=== PATIENT | female | born 1960 | race American Indian/Alaskan Native ===

== ENCOUNTER 2019-10-18 10:11 | Day surgery (SDC) | payer MEDICARE ==
[~2019-10-18 10:11] MED LIST: SODIUM CHLORIDE 0.9% 1000 ML 1,000 ML IV SCH
[2019-10-18] MEDS ORDERED: LIDOCAINE MPF (2%) 20 MG/1 ML VIAL 5 ML ONE (11:00)
--- NOTE | 2019-10-18 11:06 | Anesthesia Consultation ---
Anesthesia Consult and Med Hx Date of service: 10/18/19 - Airway Anesthetic Teeth Evaluation: Partials ROM Head & Neck: Adequate Mental/Hyoid Distance: Adequate Mallampati Class: Class II Intubation Access Assessment: Good - Pulmonary Exam CTA: Yes - Cardiac Exam Cardiac Exam: RRR - Pre-Operative Health Status ASA Pre-Surgery Classification: ASA4 Proposed Anesthetic Plan: MAC - Pulmonary Hx Smoking: No - Cardiovascular System Hx Hypertension: Yes Hx Coronary Artery Disease: Yes Hx Angina: Yes - Endocrine Hx Hypothyroidism: Yes - Additional Comments Anesthesia Medical History Comments: CHF EF 55% , HTN , Angina, hypothyoidism , Morbid Obesity BMI 60+ for MAC. Cardiac clearance on chart
--- NOTE | 2019-10-18 11:07 | Anesthesia Day of Surgery ---
Anesthesia Day of Surgery - Day of Surgery Patient Examined: Yes Patient H&P Reviewed: Yes Patient is NPO: Yes
--- NOTE | 2019-10-18 12:05 | Procedure Note ---
Date of procedure: 10/18/19 Pre-op diagnosis: Epigastric Pain Post-op diagnosis: other (No Peptic Ulcer Disease noted/ Moderate, Hiatal Hernia/ Mild to Moderate Erosive Esophagitis/Gastric Erosion and Gastritis) Procedure: EGD with Biopsy Anesthesia: KRYSTYNA Surgeon: MOY BOLTON Estimated blood loss: minimal Pathology: list Specimen disposition: to lab Condition: stable Disposition: same day (Treat with PPI; advice about lifestyle changes because of the presence of a Hiatal Hernia. Avoid aspirin and NSAID for 4 days; otherwise resume home medication. Follow up in 1 to 2 weeks ([phone]).)
[2019-10-18] MEDS ORDERED: PROPOFOL 200 MG/20 ML VIAL IV ONE (12:16)
--- NOTE | 2019-10-18 12:36 | Operative Report ---
PROCEDURE: Esophagogastroduodenoscopy with biopsy. INDICATIONS: This is a 58-year-old obese -[place] female who has been having epigastric pain and discomfort. EGD was done to assess for any significant upper GI pathology. DESCRIPTION OF PROCEDURE: Procedure was done after getting informed consent with MAC anesthesia. Instrument was passed through the hypopharynx into the esophagus, which showed mild to moderate distal erosive esophagitis. Photo documentation and biopsy was done from the distal esophagus. The stomach on the retroverted view showed a moderately large hiatal hernia and gastric erosion and gastritis in the antrum. The pylorus was patent. The duodenum in the first and second portion appeared normal. There was no evidence of any gastric or duodenal ulcer present. Biopsy was done from the second part of the duodenum to rule out for possible celiac disease. Additional biopsy was done from the gastric antrum, gastric body and angular incisura to rule out for H. pylori and atrophic gastritis. There was minimal bleeding associated with the procedure. No complications associated with the procedure. ASSESSMENT: Epigastric pain. No peptic ulcer disease noted. Moderately large hiatal hernia, mild to moderate erosive esophagitis, gastritis, gastric erosion, rule out celiac disease. PLAN: To encourage the patient about lifestyle changes because of the hiatal hernia. Treat the patient with PPI, have the patient avoid aspirin and aspirin-related products for the next few days. The patient will also be advised about possible evaluation for bariatric surgery if okay with her primary care physician and have the patient follow up in the office in 1-2 weeks' time. The procedure was done in the GI lab with assistance of the GI lab team, which included KHANG, Lenore Esqueda and Dominique owen and with assistance of anesthesia. JOB# [id number] LIEN/PERRY
--- NOTE | 2019-10-18 13:25 | Post Anesthesia Evaluation ---
- Post Anesthesia Evaluation Patient Participated: Yes Airway Patent: Yes Stable Respiratory Function: Yes Nausea/Vomiting: No Temp > 96.8F: Yes Pain Manageable: Yes Adequeate Hydration: Yes Anesthesia Complications: No Block Receding Appropriately: Not Applicable Patient on Ventilator: No
[2019-10-18 13:41] VITALS: BP 123/67
== END 2019-10-18 13:14 | disposition home or self-care (01) ==
LOC: GIO 10:11
DX: R10.13 Epigastric pain (principal); K21.0 Gastro-esophageal reflux disease with esophagitis; K44.9 Diaphragmatic hernia without obstruction or gangrene; K29.70 Gastritis, unspecified, without bleeding; K31.89 Other diseases of stomach and duodenum; I25.118 Atherosclerotic heart disease of native coronary artery with other forms of angina pectoris; E78.00 Pure hypercholesterolemia, unspecified; J45.909 Unspecified asthma, uncomplicated; I11.0 Hypertensive heart disease with heart failure; I50.9 Heart failure, unspecified; K27.9 Peptic ulcer, site unspecified, unspecified as acute or chronic, without hemorrhage or perforation; G47.30 Sleep apnea, unspecified; K29.80 Duodenitis without bleeding; M19.90 Unspecified osteoarthritis, unspecified site; E03.9 Hypothyroidism, unspecified; Z98.890 Other specified postprocedural states; Z87.891 Personal history of nicotine dependence; Z79.899 Other long term (current) drug therapy; Z98.891 History of uterine scar from previous surgery
CPT/HCPCS: 43239; 88305; 88342; J2704; J7030